=== PATIENT | female | born 1990 | race Caucasian/White ===

== ENCOUNTER 2019-08-16 14:49 | Emergency (ER) | payer SELFPAY ==
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
== END 2019-08-16 15:20 | disposition home or self-care (01) ==
LOC: VM.ED 14:49
DX: M54.6 Pain in thoracic spine (principal); G89.29 Other chronic pain
CPT/HCPCS: 99283; 99283-GF